=== PATIENT | female | born 2000 | race Caucasian/White ===

== ENCOUNTER 2024-02-29 10:38 | Emergency (ER) | payer MEDICAID ==
[~2024-02-29] VITALS: Ht 160 cm; Wt 58.0 kg
[2024-02-29 11:08] VITALS: O2SAT 100
[2024-02-29] MEDS: METHOCARBAMOL 500MG TABLET PO ONE (12:54)
[2024-02-29 13:13] LABS: CLARITY URINE CLOUDY (CLEAR); COLOR URINE YELLOW (YELLOW); GLUCOSE URINE NEGATIVE (NEGATIVE); KETONES URINE 4+ (NEGATIVE); LEUKOCYTE ESTERASE URINE 2+ (NEGATIVE); NITRITE URINE NEGATIVE (NEGATIVE); OCCULT BLOOD URINE NEGATIVE (NEGATIVE); PH URINE 5.5 (4.5-8.0); PROTEIN URINE NEGATIVE (NEGATIVE); SPECIFIC GRAVITY URINE 1.022 (1.005-1.030); UROBILINOGEN URINE 0.2 E.U./dL (0.2-1.0)
[2024-02-29 13:25] LABS: BACTERIA URINE 2+; RBC URINE 0-2 /hpf (0-2); SQUAMOUS EPITHELIAL CELL URINE 2+ /lpf (RARE/1+); YEAST URINE NONE SEEN
[2024-02-29] MEDS ORDERED: CEPH250C2 MT (13:46)
[2024-02-29] MEDS ORDERED: METH-653 MT (13:51)
[2024-02-29 14:10] VITALS: BP 118/66; PULSE 100; RESP 18; TEMP 98.5
== END 2024-02-29 14:11 | disposition home or self-care (01) ==
LOC: ER 10:38
DX: S33.5XXA Sprain of ligaments of lumbar spine, initial encounter (principal); V49.49XA Driver injured in collision with other motor vehicles in traffic accident, initial encounter; Y93.89 Activity, other specified; Y92.89 Other specified places as the place of occurrence of the external cause; Y99.8 Other external cause status
CPT/HCPCS: 81003; 81025; 99283